=== PATIENT | male | born 1970 | race Caucasian/White ===

== ENCOUNTER 2020-03-28 00:20 | Emergency (ER) | payer OTHER ==
[~2020-03-28] VITALS: Ht 175.3 cm; Wt 70.8 kg
[2020-03-28 00:34] VITALS: Ht 175.3 cm; Wt 70.8 kg
[2020-03-28 03:10] VITALS: BP 106/66
== END 2020-03-28 03:10 | disposition home or self-care (01) ==
LOC: ED 00:20
DX: I87.8 Other specified disorders of veins (principal); F17.210 Nicotine dependence, cigarettes, uncomplicated; I10 Essential (primary) hypertension
CPT/HCPCS: J1885